=== PATIENT | female | born 1955 | race Caucasian/White ===

== ENCOUNTER 2017-01-08 15:02 | Emergency (ER) | payer MEDICARE, OTHER ==
--- NOTE | ~2017-01-08 | CR91 ---
[facility] A Service of [facility] RADIOLOGY TEXT RESULTS PATIENT: THUAN RAMIREZ LOCATION: [facility]FTX : 51 UNIT #: [id number] AGE: [address]: Ludmila Dsouza SEX: F ORDER DR: [id number] [facility] [address] [place], [place] [address] [id number] E MR#: [id number] #: [id number] NAME: THUAN RAMIREZ : 1955 SEX: F STUDY DATE/TIME: 01/08/2017 15:14 UNIT: [facility] ROOM: STUDY DESCRIPTION: CR Elbow 2 View Rt Attending Physician: Ludmila Dsouza P.A.-C. Ordering Physician: Ludmila Dsouza P.A.-C. Primary Care Physician: Vannessa Willis M.D. MEDICAL IMAGING REPORT This report is preliminary unless electronic signature is present EXAM Right elbow, 3 views HISTORY Elbow pain after injury yesterday. Bruising. FINDINGS AP and lateral examination of the elbow shows satisfactory articulation of the humerus with the proximal radius and ulna. There is no identifiable fracture, dislocation, joint effusion, or radiopaque foreign body in the soft tissues. IMPRESSION Normal elbow. Dictated by... Ravinder Garcia M.D. THIS IS AN ELECTRONICALLY VERIFIED REPORT Ravinder Garcia M.D. at 01/08/2017 10:58 PM DFL/psc TD: 01/08/2017 18:33 JOB #: [id number] MEDICAL IMAGING REPORT Page 1 of 1 COPY
--- NOTE | ~2017-01-08 | CR282 ---
[facility] A Service of [facility] RADIOLOGY TEXT RESULTS PATIENT: THUAN RAMIREZ LOCATION: [place] : 51 UNIT #: [id number] AGE: [address]: Ludmila Dsouza SEX: F ORDER DR: [id number] [facility] [address] [place], [place] [address] [id number] E MR#: [id number] Acc #: [id number] NAME: THUAN RAMIREZ : 1955 SEX: F STUDY DATE/TIME: 01/08/2017 15:16 UN[facility] ROOM: STUDY DESCRIPTION: CR Wrist Min 3 View Rt Attending Physician: Ludmila Dsouza P.A.-C. Ordering Physician: Ludmila Dsouza P.A.-C. Primary Care Physician: Vannessa Willis M.D. MEDICAL IMAGING REPORT This report is preliminary unless electronic signature is present EXAM Right wrist 3 views HISTORY Wrist pain and bruising after injury yesterday. 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 Generalized demineralization. No acute fracture. Chondrocalcinosis in the proximal wrist. Mild degenerative changes in the radiocarpal joint. No acute findings. Dictated by... Ravinder Garcia M.D. THIS IS AN ELECTRONICALLY VERIFIED REPORT Ravinder Garcia M.D. at 01/08/2017 10:58 PM DFL/psc TD: 01/08/2017 18:41 JOB #: [id number] MEDICAL IMAGING REPORT Page 1 of 1 COPY
[~2017-01-08 15:02] MED LIST: ALBUTEROL17 GM INH; AMOXICILLIN PO; ASPIRIN PO; BACTRIM DS TABL1 TA1 PO; CIPRO PO; CLONIDINE PO; FERRO-TIME325 MG PO; FIORCET PO; GLUCOPHAGE500 M1 PO; HYDROCHLOROTH12.5 M1 PO; KEFLEX500 MG PO; LORTAB 10/500 T1 TAB PO; MACROBID100 MG PO; METFORMIN PO; NEURONTIN600 MG PO; NO MEDICATIONS; NORVASC PO; PAXIL PO; PHENERGAN25 MG PO; PRILOSEC20 M1 PO; PRILOSEC20 MG PO; PRINIVIL10 MG PO; ROBITUSSIN A-C S5 ML PO; SERTRALINE HCL50 MG PO; TENORMIN25 MG PO
== END 2017-01-08 16:54 | disposition home or self-care (01) ==
LOC: CFTX 15:02
DX: S63.521A Sprain of radiocarpal joint of right wrist, initial encounter (principal); S63.522A Sprain of radiocarpal joint of left wrist, initial encounter; I10 Essential (primary) hypertension; E11.9 Type 2 diabetes mellitus without complications; W01.0XXA Fall on same level from slipping, tripping and stumbling without subsequent striking against object, initial encounter; Y92.009 Unspecified place in unspecified non-institutional (private) residence as the place of occurrence of the external cause
CPT/HCPCS: 29125; 73070; 73110; 96372; 99284; J2270; J2550